=== PATIENT | female | born 1990 | race Two or more races ===

== ENCOUNTER 2021-08-30 12:19 | Inpatient (IN) | payer OTHER ==
[~2021-08-30] VITALS: Ht 149.9 cm; Wt 62.6 kg
[2021-08-30] MEDS ORDERED: PRENATA CHEWAB1 EACH (13:18)
[2021-08-30] MEDS ORDERED: HUMALOG MI100 UNIT/1 (13:19)
[2021-08-30] MEDS ORDERED: NIFE60TA3 (13:20)
[2021-09-02] MEDS ORDERED: NIFEDIPINE ER30 MG (11:24)
[2021-09-02] MEDS ORDERED: ADMELOG100 UNIT/1 (11:24)
[2021-09-02] MEDS ORDERED: SEMGLEE100 UNIT/1 (11:25)
== END 2021-09-02 17:31 | disposition home or self-care (01) | DRG 786 ==
LOC: LDR 12:19 → OB/GYN 12:19 → LDR 15:19 → OB/GYN 15:20 → LDR 15:26 → OB/GYN 20:26
PROVIDERS: ADMIT Specialist; ATTEND Specialist
PROC: 4A1HXFZ Monitoring of Products of Conception, Cardiac Rhythm, External Approach (ICD-10-PCS; 2021-08-30)
PROC: 10D00Z1 Extraction of Products of Conception, Low, Open Approach (ICD-10-PCS; principal; 2021-08-30 18:15)
DX: O62.1 Secondary uterine inertia (principal); O60.14X0 Preterm labor third trimester with preterm delivery third trimester, not applicable or unspecified; O42.013 Preterm premature rupture of membranes, onset of labor within 24 hours of rupture, third trimester; O24.424 Gestational diabetes mellitus in childbirth, insulin controlled; Z3A.36 36 weeks gestation of pregnancy; Z37.0 Single live birth